=== PATIENT | female | born 1995 | race Caucasian/White ===

== ENCOUNTER 2016-07-20 05:31 | Emergency (ER) | payer MEDICAID ==
[~2016-07-20] VITALS: Ht 175.3 cm; Wt 109.1 kg
[2016-07-20 05:37] VITALS: BP 138/80; PULSE 97; RESP 16; O2SAT 99
--- NOTE | 2016-07-20 06:47 | ED.REPORT ---
HPI-Back Pain 40 and Over Date of Service Jul 20, 2016 ED Provider: Ajay Abraham MD 20 year old female with a history of cholecystectomy and herniated discs presents to the Er complaining of constant sharp low back pain onset yesterday afternoon, worsening overnight with radiation into her abdomen. Currently she indicates pain in her right flank. She also reports nausea upon awakening, with hours of dry heaving this morning. Patient denies fever, dysuria, UTI symptoms, and current . Nursing Notes Stated Complaint: LOWER BACK PAIN, NAUSEA Chief Complaint: Back Pain or Injury Nursing Notes Reviewed: Yes ([email or web address] not reconciled) Allergies: Coded Allergies: Penicillins (Verified Allergy, Intermediate, ANAPHALITIC, 07/20/16) naproxen (Verified Allergy, Intermediate, HURTS STOMACH, 07/20/16) Scheduled Ciprofloxacin (Cipro) 500 Mg Tablet 500 MG PO BID Scheduled PRN Hydrocodone-Acetaminophen 5-325 mg (Hydrocodone-Acetaminophen 5-325 mg) 1 Each Tablet 1-2 TABLET PO Q4H PRN PRN For Pain Ondansetron ODT (Ondansetron ODT) 8 Mg Tab.rapdis 8 MG PO Q4H PRN PRN For Nausea General Time Seen by MD: 06:44 Chief Complaint Back pain Hx Obtained From: Patient Arrived By: Walk-in Sudden in Onset?: No Onset Occurred: Yesterday Symptom Duration: Since onset Caused by: Spontaneous/no mechanism Location: : Flank right: Spinal lumbar area Quality: Painful, Sharp Severity: Current: Moderate Severity: Maximum: Moderate Associated with: Reports: Abdominal pain, Nausea, Denies: Dysuria, Fever, Incontinence bladder, Incontinence bowel, Vomiting Pertinent Negative: Pt denies other symptoms Similar Sx Previous: No Past Medical History Past Medical History Herniated discs IBS Past Surgical History Reports: Cholecystectomy Smoking History Unknown if Ever Smoker Social History Other Social History: Good social support Ambulatory Status Independent Review of Systems Constitutional: Denies: Chills, Fever GI: Reports: Abdominal pain, Nausea, Denies: Vomiting Female: Reports: Flank pain, Denies: Dysuria, , Urinary frequency, Urinary urgency Musculoskeletal: Reports: Back pain Complete sys rev & neg: except as marked. Physical Exam Initial Vital Signs Vital Signs (First) Date Time Temp Pulse Resp B/P Pulse Ox O2 Delivery O2 Flow Rate FiO2 4/9/17 05:37 36.8 97 16 138/80 99 Room Air Initial VS: Reviewed Head / Eyes: Atraumatic, Normocephalic Neck: Supple, Non-tender, Full range of motion Extremities: Vascular intact, Neuro intact, No swelling, No tenderness Skin: Warm, Dry, No cyanosis General/Constitutional: Awake, Alert, Well developed Respiratory / Chest: Breath sounds NL, Breath sounds = bilat, No respiratory distress, No rales, No rhonchi, No wheezing Cardiovascular: Heart rate NL, Regular rhythm, Heart sounds NL, No murmurs, Peripheral circulation NL Abdomen: Soft, McBurney's non-tender, No guarding, No rebound Mild not reproducible mid right side tenderness. No RUQ tenderness. Back: Full range of motion, No midline vertebral tend Flank / Spine / Paraspinal: Positive: Flank tender R Neurologic: Oriented X3, Speech NL, No motor deficits, No sensory deficits, Reflexes equal bilat Interpretation & Diagnostics Lab Results Interpretation Test 07/20/16 07:30 Urine Color Yellow (YELLOW) Urine Appearance Slightly cloudy Urine pH 5.0 (5.0-8.0) Urine Specific [place] 1.014 (1.003-1.035) Urine Protein Negativemg/dL (NEG,TRACE) Urine Glucose (UA) Negativemg/dL (NEGATIVE) Urine Ketones Negativemg/dL (NEGATIVE) Urine Occult Blood Small (NEGATIVE) Urine Nitrite Positive (NEGATIVE) Urine Bilirubin Negative (NEGATIVE) Urine Urobilinogen Normalmg/dL (NORMAL) Urine Leukocyte Esterase Moderate (NEGATIVE) Urine RBC 0-2/hpf (0-2) Urine WBC Packed/hpf (0-5) Urine Epithelial Cells Few/hpf (NONE-MOD) Urine Crystals None seen (NONE SEEN) Urine Bacteria Many/hpf (NONE-FEW) Urine Hyaline Casts None/lpf (NONE) Urine Granular Casts None seen (NONE SEEN) Urine Waxy Casts None seen (NONE SEEN) Urine Red Blood Cell Casts None seen (NONE SEEN) Urine White Blood Cell Casts None seen (NONE SEEN) Urine Mucus None seen (None Seen) Urine Trichomonas None seen (NONE SEEN) Urine Yeast None (NONE SEEN) Urinalysis Comment None Urine Culture Reflexed Indicated Lab Results Interpretation: UA negative , marked positive for infection Re-Eval/Medical Decision Med Decision/Clinical Course This is a 18-year-old female presents complaining of back pain, and now some vague abdominal discomfort-accompanied by onset of nausea and retching. The patient was initially concerned that it could be musculoskeletal she has had problems with her back in the past, reports the discomfort was different, there was no mechanism or event, and then the nausea and vomiting which woke her up in the morning was certainly different- than what she has experienced previously. She denies dysuria, urgency or frequency. She denies fevers or chills. She does not appear toxic or ill, but she does have some mild right-sided CVA tenderness. Her abdomen however soft and nontender-there are no clinical findings of appendicitis. is negative, UA is packed with white cells-in the overall presentation is suspicious for pyelonephritis. Patient started on ceftriaxone IM, and given the penicillin allergy is being discharged on a course of Cipro. Her some when necessary hydrocodone, and routine and return precautions reviewed. The patient did receive a dose of pain medicine in the department. She is much improved at time of discharge. Source of Hx: Old records Re-Evaluation/Progress : Time of Eval: 09:10 Re-Evaluation/Progress Note: Discussed UA results as well as the as discharge instructions with the patient. The patient understands and agrees with the plan. All questions answered. Differential Diagnosis: Positive: Pyelonephritis, Negative: Abdominal aortic aneurysm, Aortic dissection, Appendicitis, Cauda equina syndrome, Cholangitis, Cholecystitis, Cholelithiasis, Ectopic , Epidural abscess, Epidural hematoma, Herniated disk, Neoplasm, Pancreatitis Counseled Regarding: Diagnosis, Lab results Discharge & Departure Impression: Primary Impression: Pyelonephritis Disposition: Home Discharge Condition All VS Reviewed: Yes Condition: Stable Additional Instructions: 1. Your urine tests indicate that you do have a kidney infection. 2. You received an injection of the antibiotic ceftriaxone. 3. Starting this evening take the antibiotic ciprofloxacin 500 mg twice a day for 10 days. 4. Take ondansetron 8 mg-with dissolve underneath tongue-up every 4 hours if needed for nausea. 5. If needed for pain, take hydrocodone/APAP 5/325 one to 2 tabs up to every 6 hours. Note: This medication contains narcotic and causes some drowsiness. No driving for at least 4-6 hours after taking. 6. Symptoms are suspected to be clearly improving within 48 hours of starting antibiotics, if symptoms are not improving, if you having new or worsening symptoms-return to the emergency department. He is important however, to complete all of the analogs even if you are feeling better, otherwise symptoms can return. 7. If you need a local primary care physician, follow-up with Dr. Seo at [facility] Referrals: NOPCP (PCP) Helena Seo MD Attestation Portions of this note were transcribed by Jose Ribeiro and Juancho Doshi. I, Dr. Abraham, personally performed the history, physical exam and medical decision-making; I reviewed and confirmed the accuracy of the information in the transcribed note. Signed by: Emigdio Jackson, 2016 and 09. copies to: Helena Seo MD, Matthew F MD Jul 20, 2016 06:47 JOSE RIBEIRO Jul 20, 2016 07:07 Juancho Doshi Jul 20, 2016 09:18
[2016-07-20] MEDS ORDERED: Ondansetron 8 mg ODT Tablet PO ONE (07:05)
[2016-07-20] MEDS: HYDROmorphone 1 mg/mL Inj IM ONE (07:42)
[2016-07-20 08:37] LABS: APPEARANCE,URINE SLIGHTLY CLOUDY (CLEAR,HAZY); COLOR,URINE YELLOW (YELLOW); OCCULT BLOOD,URINE SMALL (NEGATIVE); UROBILINOGEN,URINE NORMAL (NORMAL)
[2016-07-20] MEDS ORDERED: cefTRIAXone Inj 1,000 MG, Lidocaine PF 1% Inj 2.1 ML in Syringe 0 EACH IM ONE ×2 (09:10→09:50)
[2016-07-20] MEDS ORDERED: ONDA8TAB10 PO (09:17)
[2016-07-20] MEDS ORDERED: HYDR-4003 PO (09:17)
[2016-07-20] MEDS ORDERED: CIPR-231 PO (09:17)
[2016-07-20] MEDS ORDERED: HYDROcodone-APAP 5-325 mg Tablet PO ONE (10:20)
== END 2016-07-20 10:53 | disposition home or self-care (01) ==
LOC: SED 05:31
DX: N12 Tubulo-interstitial nephritis, not specified as acute or chronic (principal); F17.200 Nicotine dependence, unspecified, uncomplicated; Z90.49 Acquired absence of other specified parts of digestive tract; Z87.19 Personal history of other diseases of the digestive system; Z88.0 Allergy status to penicillin; Z88.6 Allergy status to analgesic agent
CPT/HCPCS: 81000; 81025; 87086; 87088; 87186; 96372; 99284; J0696; J1170

== ENCOUNTER 2016-08-02 11:33 | Emergency (ER) | payer MEDICAID ==
[~2016-08-02] VITALS: Ht 175.3 cm; Wt 104.5 kg
[~2016-08-02 11:33] MED LIST: CIPR-231 PO; HYDR-4003 PO; ONDA8TAB10 PO
[2016-08-02 11:38] VITALS: BP 133/75; PULSE 73; RESP 20; O2SAT 99
--- NOTE | 2016-08-02 11:43 | ED.REPORT ---
HPI-Dental/Mouth Prob Date of Service Aug 02, 2016 ED Provider: Evie Kiran Patient is a 20 year old female who presents to the ED complaining of tooth pain onset six months ago. The patient reports that she has a shooting pain on the left side due to a broken tooth. She also has pain on the right side because she is missing a back tooth. Nursing Notes Stated Complaint: DENTAL PAIN Chief Complaint: Dental Nursing Notes Reviewed: Yes Allergies: Coded Allergies: Penicillins (Verified Allergy, Intermediate, ANAPHALITIC, 07/20/16) naproxen (Verified Allergy, Intermediate, HURTS STOMACH, 07/20/16) Scheduled Ciprofloxacin (Cipro) 500 Mg Tablet 500 MG PO BID Scheduled PRN Hydrocodone-Acetaminophen 5-325 mg (Hydrocodone-Acetaminophen 5-325 mg) 1 Each Tablet 1-2 TABLET PO Q4H PRN PRN For Pain Ibuprofen (Ibuprofen) 600 Mg Tablet 600 MG PO QID PRN PRN For Pain Ondansetron ODT (Ondansetron ODT) 8 Mg Tab.rapdis 8 MG PO Q4H PRN PRN For Nausea General Time Seen by MD: 11:42 Chief Complaint Tooth chipped Hx Obtained From: Patient Arrived By: Walk-in Onset Occurred: More than a week ago... (6 months) Symptom Duration: Since onset Location: : Tooth upper L molar: Tooth upper R molar Recent Healthcare: No recent hospitalization, Recent doctor visit Past Medical History Past Medical History Herniated discs IBS Reports: Asthma Past Surgical History Reports: Cholecystectomy Smoking History Unknown if Ever Smoker Ambulatory Status Independent Review of Systems Review of Systems Note: right and left upper molar pain Respiratory: Denies: Non-productive cough, Shortness of breath Complete sys rev & neg: except as marked. Physical Exam Physical Exam Notes: left posterior upper molar fracture no surrounding erythema or fluctuance on right or left side slight tenderness Initial Vital Signs Vital Signs (First) Date Time Temp Pulse Resp B/P Pulse Ox O2 Delivery O2 Flow Rate FiO2 08/02/16 11:38 35.7 73 20 133/75 99 Room Air Initial VS: Reviewed ENT: Atraumatic, Airway patent, Mucous membranes moist Re-Eval/Medical Decision Med Decision/Clinical Course 20-year-old year-old female with chronic dental problems here complaining of tooth pain for 6 months. She reports she broke her bilateral upper molars 6 months ago. Chronic pain since then. Nontender on exam no sign symptoms infection. Referred her to local dentists. Give her ibuprofen as needed for pain. Return precautions given regarding signs symptoms infection. Re-Evaluation/Progress : Time of Eval: 11:42 Re-Evaluation/Progress Note: Discussed plan for discharge and follow up instructions during initial interview. The patient understands to the plan for discharge. All questions were addressed. Discharge & Departure Primary Impression: Pain, dental Disposition: Home Discharge Condition All VS Reviewed: Yes Condition: Stable Additional Instructions: Take Ibuprofen as needed for pain. If it upsets your stomach, stop and use Tylenol instead. Please follow up with a dentist next week for further evaluation. Please return to the emergency department if you develop any new or worsening symptoms. Referrals: [facility] Emigdio Attestation Portions of this note were transcribed by Tatum Cooper. I, Dr. Santos personally performed the history, physical exam and medical decision-making; I reviewed and confirmed the accuracy of the information in the transcribed note. Signed by: Emigdio Guevara, 08/02/16 and 1158. copies to: [facility] Tank Santos MD Aug 02, 2016 11:43 Mely Cooper Aug 02, 2016 11:51
[2016-08-02] MEDS ORDERED: IBUP-1827 PO (11:48)
== END 2016-08-02 12:09 | disposition home or self-care (01) ==
LOC: SED 11:33
DX: K08.89 Other specified disorders of teeth and supporting structures (principal); J45.909 Unspecified asthma, uncomplicated; Z88.6 Allergy status to analgesic agent; Z88.0 Allergy status to penicillin

== ENCOUNTER 2016-11-11 17:53 | Emergency (ER) | payer MEDICAID, OTHER ==
[~2016-11-11] VITALS: Ht 175.3 cm; Wt 95.9 kg
[~2016-11-11 17:53] MED LIST changes: +IBUP-1827 PO
[2016-11-11 17:55] VITALS: BP 125/86; PULSE 118; RESP 24; O2SAT 100
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
[2016-11-11] MEDS ORDERED: Bacitracin Ointment Packet TOPICAL ONE (18:35)
[2016-11-11] MEDS ORDERED: oxyCODONE-Acetamin 5-325 mg Tablet PO ONE (18:35)
[2016-11-11] MEDS ORDERED: OXYC-407 PO (19:25)
[2016-11-11 19:48] VITALS: BP 124/82; PULSE 99; RESP 24; O2SAT 100
== END 2016-11-11 19:50 | disposition home or self-care (01) ==
LOC: SED 17:53
DX: T20.10XA Burn of first degree of head, face, and neck, unspecified site, initial encounter (principal); T20.17XA Burn of first degree of neck, initial encounter; T22.111A Burn of first degree of right forearm, initial encounter; T24.191A Burn of first degree of multiple sites of right lower limb, except ankle and foot, initial encounter; X11.8XXA Contact with other hot tap-water, initial encounter; Y93.89 Activity, other specified; Y92.89 Other specified places as the place of occurrence of the external cause; Y99.0 Civilian activity done for income or pay; Z88.0 Allergy status to penicillin; Z88.5 Allergy status to narcotic agent

== ENCOUNTER 2016-11-12 15:57 | Emergency (ER) | payer OTHER ==
[~2016-11-12] VITALS: Ht 175.3 cm; Wt 95.5 kg
[~2016-11-12 15:57] MED LIST changes: +OXYC-407 PO
[2016-11-12 16:11] VITALS: BP 137/74; PULSE 94; RESP 12; O2SAT 100
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
[2016-11-12] MEDS ORDERED: HYDROcodone-APAP 5-325 mg Tablet PO ONE (16:30)
[2016-11-12 16:59] VITALS: BP 137/74; PULSE 94; RESP 12; O2SAT 100
== END 2016-11-12 17:00 | disposition home or self-care (01) ==
LOC: SED 15:57
DX: T23.121D Burn of first degree of single right finger (nail) except thumb, subsequent encounter (principal); T23.061D Burn of unspecified degree of back of right hand, subsequent encounter; T25.021D Burn of unspecified degree of right foot, subsequent encounter; X12.XXXD Contact with other hot fluids, subsequent encounter; Y93.G3 Activity, cooking and baking; Y99.0 Civilian activity done for income or pay; Y92.511 Restaurant or cafe as the place of occurrence of the external cause; J45.909 Unspecified asthma, uncomplicated; F12.10 Cannabis abuse, uncomplicated; Z88.0 Allergy status to penicillin; Z88.1 Allergy status to other antibiotic agents

== ENCOUNTER 2016-11-15 15:59 | Emergency (ER) | payer SELFPAY ==
[~2016-11-15] VITALS: Ht 175.3 cm; Wt 95.9 kg
[2016-11-15 16:18] VITALS: BP 120/78; PULSE 76; O2SAT 98
--- NOTE | 2016-11-15 16:42 | ED.REPORT ---
HPI-Burn/Elec Inj Date of Service Nov 15, 2016 ED Provider: Jack Schafer MD A 20 year old female with a history of herniated discs and asthma presents to the ED complaining of a burn. The pt was heating oil while at work four days ago when it spilled on her right hand, right leg and right foot. She was seen immediately following the event and discharged with Percocet. Since that time, the burn has blistered extensively and become extremely painful. Nursing Notes Stated Complaint: RIGHT AND FOOT BURN Chief Complaint: Burn/Smoke Inhalation Nursing Notes Reviewed: Yes Allergies: Coded Allergies: Penicillins (Verified Allergy, Intermediate, ANAPHALITIC, 07/20/16) naproxen (Verified Allergy, Intermediate, HURTS STOMACH, 07/20/16) Scheduled Ciprofloxacin (Cipro) 500 Mg Tablet 500 MG PO BID Scheduled PRN Hydrocodone-Acetaminophen 5-325 mg (Hydrocodone-Acetaminophen 5-325 mg) 1 Each Tablet 1-2 TABLET PO Q4H PRN PRN For Pain Ibuprofen (Ibuprofen) 600 Mg Tablet 600 MG PO QID PRN PRN For Pain Ondansetron ODT (Ondansetron ODT) 8 Mg Tab.rapdis 8 MG PO Q4H PRN PRN For Nausea Oxycodone HCl/Acetaminophen 5-325 (Endocet 5-325) 1 Each Tablet 1-2 TABLET PO Q4H PRN PRN For Pain oxyCODONE-Acetaminophen 5-325 mg (oxyCODONE-Acetaminophen 5-325 mg) 1 Each Tablet 1-2 TAB PO Q4hour PRN PRN For Pain General Time Seen by MD: 16:40 Chief Complaint Scald burn Hx Obtained From: Patient Arrived By: Walk-in Onset Occurred: 4 days ago Symptom Duration: Since onset Recent Healthcare: Recent doctor visit Past Medical History Past Medical History Herniated discs IBS Reports: Asthma Past Surgical History Reports: Cholecystectomy, Tonsillectomy Smoking History Unknown if Ever Smoker Social History Alcohol Use: "Social" Drug Use: THC Other Social History: Good social support Ambulatory Status Independent Review of Systems Review of Systems Note: scald burn and blistering of right leg, foot and hand Respiratory: Denies: Non-productive cough, Shortness of breath Cardiovascular: Denies: Chest pain GI: Denies: Abdominal pain, Vomiting Musculoskeletal: Denies: Back pain, Neck pain Skin: Denies Rash Complete sys rev & neg: except as marked. Physical Exam Initial Vital Signs Vital Signs (First) Date Time Temp Pulse Resp B/P Pulse Ox O2 Delivery O2 Flow Rate FiO2 11/15/16 16:18 36.7 76 120/78 98 Room Air Initial VS: Reviewed General/Constitutional: Awake, Alert Respiratory / Chest: Atraumatic, Breath sounds NL, Breath sounds = bilat, No respiratory distress Cardiovascular: Heart rate NL, Heart sounds NL Skin: Warm, Dry 10 cm x 2.5 cm second degree burn on upper right calf 2 cm x 2 cm area of second degree burn, right calf 10 cm x 3 cm second degree burn of anterior right lower leg 8 cm x 0.5 cm stripe of second degree burn, medial anterior right lower leg 10 cm x 5 cm second degree burn on dorsum of right foot burn in the web space of the second/third, third/fourth, and fourth/fifth toes second degree burn on the dorsum of second and fourth toe dorsally third degree full thickness burn of third toe dorsally second degree guerrero of entire dorsum of right hand second degree guerrero of second, third and fourth digits to the DIP joint distally first degree burn of first and fifth digits finger spaces mostly spared burn ends at wrist crease palm not affected Neurologic: Oriented X3, Speech NL, No motor deficits, No sensory deficits Head / Eyes: Atraumatic, Normocephalic, PERRL, EOMI ENT: Atraumatic, Airway patent, Mucous membranes moist Neck: Atraumatic, Supple, Full range of motion Abdomen: Atraumatic, Soft, Non-tender Back: Atraumatic, Full range of motion Upper Extremity / MS: Full range of motion, Neurologic intact, Vascular intact Lower Extremity / Pelvis / MS: Full range of motion, Neurologic intact, Vascular intact Psychiatric: Affect NL, Mood NL Procedures Procedure Notes: Burn debridement: 17:43 ED physician informed consent from patient, time-out performed, hand hygiene observed, sterile stand technique extensive debridement of right hand, leg and foot burn is unroofed and debrided skin buds and proud flesh present on underlying skin no infection suspected Xeroform gauze and sterile dressing applied antibiotic ointment applied, dressing applied, no complications, condition improved, tolerated procedure well, pt stable Re-Eval/Medical Decision Source of Hx: Old records Re-Evaluation/Progress : Time of Eval: 17:43 Patient Status: Condition improved Re-Evaluation/Progress Note: Pt rechecked and her burn is debrided without complication. The diagnosis and plan for discharge was discussed. The pt understands and agrees with the plan. All questions are addressed at this time. Counseled Regarding: Diagnosis, Need for follow-up, When/why to return to ED Discharge & Departure Primary Impression: Burn of right foot Encounter type: subsequent encounter Burn degree: second degree Qualified Code: T25.221D - Burn of second degree of right foot, subsequent encounter Additional Impressions: Burn of right leg Encounter type: subsequent encounter Burn degree: second degree Qualified Code: T24.201D - Burn of second degree of unspecified site of right lower limb , except ankle and foot, subsequent encounter Burn of right hand including fingers Encounter type: subsequent encounter Burn degree: second degree Qualified Code: T23.201D - Burn of second degree of right hand, unspecified site, subsequent encounter Disposition: Home Discharge Condition All VS Reviewed: Yes Condition: Stable Patient Instructions: Second Degree Burn (ED), Third Degree Burn (ED) Additional Instructions: Thank you for allowing us to be a part of your care. Remove the dressing and wash with clean tap water and a mild soap once daily. Allow the wounds to air dry. Apply Xeroform gauze. Then apply plain gauze and a sterile wrap. Call [facility] to arrange a follow up appointment early next week. Return to the emergency department if you develop any new or worsening symptoms including fever, chills, discharge, redness or swelling. For pain I recommend the following: Ibuprofen 400 mg every 8 hours. Benadryl 25-50 mg every 6 hours. Percocet 1 or 2 tablets every 4 hours as needed for more severe pain. Right away for evidence of infection. Referrals: [facility] Scribe Attestation Portions of this note were transcribed by Bryce Hanley. I, Dr. Schafer personally performed the history, physical exam and medical decision-making; I reviewed and confirmed the accuracy of the information in the transcribed note. copies to: [facility] ; [facility] Jack Schafer MD Nov 15, 2016 16:42 BRYCE HANLEY Nov 15, 2016 16:51
[2016-11-15] MEDS ORDERED: diphenhydrAMINE 50 mg Capsule PO ONE (17:00)
[2016-11-15] MEDS ORDERED: diphenhydrAMINE 25 mg Capsule PO ONE ×2 (17:10→17:20)
[2016-11-15] MEDS ORDERED: OXYC1TAB24 PO (18:49)
[2016-11-15 18:54] VITALS: BP 128/57; PULSE 75; RESP 16; O2SAT 99
== END 2016-11-15 18:55 | disposition home or self-care (01) ==
LOC: SED 15:59
DX: T25.221D Burn of second degree of right foot, subsequent encounter (principal); T24.231D Burn of second degree of right lower leg, subsequent encounter; T23.201D Burn of second degree of right hand, unspecified site, subsequent encounter; T31.0 Burns involving less than 10% of body surface; X10.2XXD Contact with fats and cooking oils, subsequent encounter; Y93.G3 Activity, cooking and baking; Y92.511 Restaurant or cafe as the place of occurrence of the external cause; Y99.0 Civilian activity done for income or pay; J45.909 Unspecified asthma, uncomplicated; Z88.0 Allergy status to penicillin; Z88.6 Allergy status to analgesic agent
CPT/HCPCS: 16025; 96372; 99283; J1885

== ENCOUNTER 2016-11-19 21:54 | Emergency (ER) | payer OTHER ==
[~2016-11-19] VITALS: Ht 177.8 cm; Wt 90.9 kg
[~2016-11-19 21:54] MED LIST changes: +OXYC1TAB24 PO
[2016-11-19 22:16] VITALS: BP 113/73; PULSE 87; RESP 16; O2SAT 100
--- NOTE | 2016-11-19 22:50 | ED.REPORT ---
HPI-Extremity Problem Upper Date of Service Nov 19, 2016 ED Provider: Jeffy Horton DO Patient is a 20 year old female who presents to the ED complaining of multiple burn areas. Associated symptoms include surrounding erythema to the galarza. The patient reports that the galarza have continued to hurt and not heal. The patient was seen three times at the ED in the last week but states that she was never given any antibiotics or cream for her galarza and was concerned they were getting infected. Nursing Notes Stated Complaint: GALARZA ON HANDS AND FEET Chief Complaint: Burn/Smoke Inhalation Nursing Notes Reviewed: Yes Allergies: Coded Allergies: Penicillins (Verified Allergy, Intermediate, ANAPHALITIC, 07/20/16) naproxen (Verified Allergy, Intermediate, HURTS STOMACH, 07/20/16) Scheduled Ciprofloxacin (Cipro) 500 Mg Tablet 500 MG PO BID Scheduled PRN Hydrocodone-Acetaminophen 5-325 mg (Hydrocodone-Acetaminophen 5-325 mg) 1 Each Tablet 1-2 TABLET PO Q4H PRN PRN For Pain Ibuprofen (Ibuprofen) 600 Mg Tablet 600 MG PO QID PRN PRN For Pain Ondansetron ODT (Ondansetron ODT) 8 Mg Tab.rapdis 8 MG PO Q4H PRN PRN For Nausea Oxycodone HCl/Acetaminophen 5-325 (Endocet 5-325) 1 Each Tablet 1-2 TABLET PO Q4H PRN PRN For Pain oxyCODONE-Acetaminophen 5-325 mg (oxyCODONE-Acetaminophen 5-325 mg) 1 Each Tablet 1-2 TAB PO Q4hour PRN PRN For Pain General Time Seen by MD: 22:50 Chief Complaint Other (multiple burn areas) Hx Obtained From: Patient Arrived By: Walk-in Onset Occurred: 1 week ago Symptom Duration: Since onset Caused by: Burn Location: : Hand right Quality: Painful Severity: Current: Moderate Immunizations: All up to date Recent Healthcare: Recent doctor visit Similar Sx Previous: Yes Past Medical History Past Medical History Herniated discs IBS Reports: Asthma Past Surgical History Reports: Cholecystectomy, Tonsillectomy Smoking History Unknown if Ever Smoker Social History Alcohol Use: "Social" Drug Use: THC Other Social History: Good social support Ambulatory Status Independent Review of Systems Review of Systems Note: +multiple galarza +erythema Constitutional: Denies: Chills, Fever Musculoskeletal: Reports: Extremity pain Skin: Denies Itching, Denies Rash Neurologic: Denies: Numbness, Weakness Complete sys rev & neg: except as marked. Respiratory: Denies: Non-productive cough, Shortness of breath Physical Exam Initial Vital Signs Vital Signs (First) Date Time Temp Pulse Resp B/P Pulse Ox O2 Delivery O2 Flow Rate FiO2 11/19/16 22:16 36.5 87 16 113/73 100 Initial VS: Reviewed General/Constitutional: Awake, Alert Respiratory / Chest: Atraumatic, Breath sounds NL, Breath sounds = bilat, No respiratory distress Cardiovascular: Heart rate NL, Regular rhythm, Heart sounds NL HAND: moderate second degree galarza to the dorsum of the right hand and fingers with cellulitis Skin: Warm, Dry Neurologic: Oriented X3, Speech NL, No motor deficits, No sensory deficits Head / Eyes: Atraumatic, Normocephalic, PERRL, EOMI LOWER EXTREMITIES: moderate second degree galarza to the dorsal aspect of the right foot with cellulitis Psychiatric: Affect NL, Mood NL Re-Eval/Medical Decision Re-Evaluation/Progress : Time of Eval: 00:21 Re-Evaluation/Progress Note: Discussed plan to follow up with [facility] burn center and discharge. Patient understands and agrees to plan. All questions were addressed. Counseled Regarding: Diagnosis, Need for follow-up, When/why to return to ED Discharge & Departure Impression: Primary Impression: Burn of multiple sites (except with eye) of face, head, and neck Additional Impression: Cellulitis Site of cellulitis: extremity Site of cellulitis of extremity: lower extremity Laterality: right Qualified Code: L03.115 - Cellulitis of right lower limb Disposition: Home Discharge Condition All VS Reviewed: Yes Condition: Stable Patient Instructions: Cellulitis (ED), Second Degree Burn (ED) Additional Instructions: Follow up with [facility] for further evaluation and care of your galarza. They should call you to schedule an appointment. If you have not heard from them by tomorrow you can call to schedule a follow up. Take Clindamycin 3x a day for 5 days for infection. Use Silvadene ointment and dressing on the galarza once a day. Be sure to do wrist and hand stretching exercises, as well as feet and ankle. You can take 1-2 [place] every 6 hours as needed for severe pain. Do not drink alcohol or drive while taking the pain medication, as it can have a sedating effect. Do not combine with Acetaminophen. Return to the emergency department if you develop any new or concerning symptoms. Referrals: [facility] Emigdio Attestation Portions of this note were transcribed by Tatum Cooper. I, Dr. Horton personally performed the history, physical exam and medical decision-making; I reviewed and confirmed the accuracy of the information in the transcribed note. Signed by: Emigdio Guevara, 11/19/16 Jeffy Horton DO Nov 19, 2016 22:50 Mely Cooper Nov 19, 2016 23:24
[2016-11-19] MEDS ORDERED: Clindamycin Inj 900 MG in IV Premix 1 EACH IV ONE (23:00)
[2016-11-19] MEDS: HYDROmorphone 0.5 mg/0.5 mL iSecure Syringe IVPUSH PRN (23:54)
[2016-11-20] MEDS ORDERED: Sodium Chloride LOK Flush 10 mL Syringe IVFLUSH SCH (00:30)
[2016-11-20] MEDS: HYDROmorphone 0.5 mg/0.5 mL iSecure Syringe IVPUSH PRN (01:03)
[2016-11-20] MEDS ORDERED: _HYDROcodone/APAP 5-325 mg Tablet PO PRN (01:20)
[2016-11-20 01:58] VITALS: BP 123/61; PULSE 79; RESP 14; O2SAT 100
== END 2016-11-20 01:59 | disposition home or self-care (01) ==
LOC: SED 21:54
DX: T23.261A Burn of second degree of back of right hand, initial encounter (principal); T23.231A Burn of second degree of multiple right fingers (nail), not including thumb, initial encounter; T25.221A Burn of second degree of right foot, initial encounter; L03.115 Cellulitis of right lower limb; L03.113 Cellulitis of right upper limb; Z88.0 Allergy status to penicillin; Z88.6 Allergy status to analgesic agent; X10.2XXA Contact with fats and cooking oils, initial encounter; Y93.9 Activity, unspecified; Y92.89 Other specified places as the place of occurrence of the external cause; Y99.0 Civilian activity done for income or pay
CPT/HCPCS: 16020; 96365; 96372; 96375; 96376; 99284; 99285; J1170; J3490